=== PATIENT | female | born 1945 | race Caucasian/White ===

== ENCOUNTER → 2020-04-22 | Outpatient (CLI) | payer MEDICARE ==
[~2020-04-22] MED LIST: ALENDRONATE SOD70 MG PO; CALCIUM600 MG PO; EFFEXOR XR75 MG PO; ELAVIL 25 MG TA25 MG PO; ELAVIL 50 MG TA50 MG PO; ESCITALOPRAM OX20 MG PO; HYDROCHLOROTH12.5 MG PO; IBUPROFEN200 M1 PO; LEVAQUIN500 MG PO; LEXAPRO20 MG PO; LORTAB 7.5-3251 EACH PO; MACROBID 100 M100 M1 PO; MIRALAX17 GM PO; NAPROSYN500 MG PO; NORCO 5-325 TA1 EACH PO; NORVASC 5 MG TAB5 MG PO; NORVASC2.5 MG PO; OMEPRAZOLE20 M1 PO; ONCE DAILY1 EACH PO; QUINAPRIL HCL10 MG PO; SIMVASTATIN40 MG PO; TENORMIN 50 MG50 MG PO; VENLAFAXINE HCL75 MG PO; VITAMIN D3125 MCG PO; ZOCOR40 MG PO
== END ==
LOC: RAD 08:13
DX: K22.4 Dyskinesia of esophagus (principal); K22.8 Other specified diseases of esophagus; K44.9 Diaphragmatic hernia without obstruction or gangrene; K21.9 Gastro-esophageal reflux disease without esophagitis
CPT/HCPCS: 74220

== ENCOUNTER → 2021-09-06 | Outpatient (CLI) | payer MEDICARE | LOC: MAMO 14:53 | DX: Z12.31 Encounter for screening mammogram for malignant neoplasm of breast (principal); Z78.0 Asymptomatic menopausal state | CPT/HCPCS: 77063; 77067 ==

== ENCOUNTER → 2021-11-30 | Outpatient (CLI) | payer MEDICARE | LOC: KOH-I 14:12 | DX: F17.210 Nicotine dependence, cigarettes, uncomplicated (principal) | CPT/HCPCS: 71271 ==